=== PATIENT | female | born 1980 | race Caucasian/White ===

== ENCOUNTER → 2020-10-14 12:00 | Outpatient (BNVA) | payer MEDICAID, SELFPAY | PROVIDERS: Family Provider Family Medicine; Visit Provider Nurse Practitioner | DX: Z34.90 Encounter for supervision of normal pregnancy, unspecified, unspecified trimester (principal) | CPT/HCPCS: 81000 ==

== ENCOUNTER 2021-05-17 21:39 | Emergency (ER) | payer MEDICAID, SELFPAY ==
--- NOTE | 2021-05-17 21:40 | ECG_ITS ---
[facility] Test Date: 2021-05-17 Pat Name: Pam Alejandro Department: Room: Gender: Female [employer]cer: : 1980 Requested By: Mike Alicea Order Number: [id number] Titus MD: Ayanna Bradley M.D. Measurements Intervals [place] Rate: 74 P: 69 OR: 137 QRS: 65 QRSD: 94 T: 90 QT: 408 QTc: 453 Interpretive Statements SINUS RHYTHM MODERATE T-WAVE ABNORMALITY, CONSIDER ANTERIOR ISCHEMIA [-0.1+ mV T-WAVE IN V3/V4] Compared to ECG 11/13/2017 09:20:10 No significant changes Electronically Signed On 05-18-2021 18:27:31 CDT by Ayanna Bradley M.D. [email or web address]
--- NOTE | 2021-05-17 21:40 | XRR_ITS ---
PROCEDURE INFORMATION: Exam: XR Chest Exam date and time: 05/17/2021 10:16 PM Age: 40 years old Clinical indication: Chest wall pain; Additional info: Cp TECHNIQUE: Imaging protocol: XR of the chest. Views: 1 view. COMPARISON: CR Chest 1 [place] [id number] 11/13/2017 11:13 AM FINDINGS: Lungs: Unremarkable. No consolidation. Pleural spaces: Unremarkable. No pleural effusion. No pneumothorax. Heart/Mediastinum: Unremarkable. No cardiomegaly. Bones/joints: Unremarkable. XR/XR chest 1V portable [id number] IMPRESSION: No acute findings.
[2021-05-17 21:42] VITALS: BP 139/104; PULSE 82; RESP 14; O2SAT 99; BMI 17.6
== END 2021-05-17 23:04 | disposition left against medical advice (07) ==
PROVIDERS: Emergency Provider Family Medicine
DX: Z53.21 Procedure and treatment not carried out due to patient leaving prior to being seen by health care provider (principal); R06.02 Shortness of breath; R06.00 Dyspnea, unspecified
CPT/HCPCS: 71045; 93005